=== PATIENT | female | born 1980 | race Caucasian/White ===

== ENCOUNTER 2021-08-07 15:33 | Observation (INO) ==
[2021-08-07] MEDS ORDERED: Ondansetron 4 MG/2 ML VIAL IVP PRN (16:03)
[2021-08-07] MEDS ORDERED: Naloxone 0.4 MG/ML INJ IVP PRN (16:03)
[2021-08-07] MEDS ORDERED: *HR* HYDROcodone/Acet 5/325 mg TABLET PO PRN (16:03)
[2021-08-07] MEDS ORDERED: *HR* HYDROmorphone (PF) 1 MG/ML SYRINGE IVP ONE (16:09)
[2021-08-07] MEDS: 0.9 % Sodium Chloride 1,000 ML IVC SCH (16:20)
[2021-08-07] MEDS: Gabapentin 300 MG CAPSULE PO SCH ×2 (16:20→20:09)
[2021-08-07 16:45] LABS: Basophils % 0.2 %; Eosinophils % 0.2 %; Hematocrit 40.3 % (35.3-44.9); Hemoglobin 13.7 g/dL (11.5-15.4); Immature Granulocytes % 0.3 % (0-4); Lymphocytes # 1.8 K/mcL (0.6-4.6); Lymphocytes % 31.3 %; Mean Corpuscular Hemoglobin 31.4 pg (28.0-33.3); Mean Corpuscular Volume 92.2 fL (83.0-100.0); Mean Platelet Volume 10.2 fL (9.4-12.4); Monocytes # 0.4 K/mcL (0.0-1.3); Monocytes % 6.7 %; Neutrophils # 3.6 K/mcL (1.6-8.9); Platelet Count 179 K/mcL (140-400); Red Blood Count 4.37 M/mcL (3.82-4.97); Red Cell Distribution Width 12.4 % (11.5-14.5); Segmented Neutrophils % 61.3 %; White Blood Count 5.9 K/mcL (4.3-11.1)
[2021-08-07 16:56] LABS: INR 1.1
[2021-08-07 16:59] LABS: Activated Partial Thrombo Time 31.1 Seconds (26.0-36.0)
[2021-08-07 17:13] LABS: BUN/Creatinine Ratio 18 (6-26); Blood Urea Nitrogen 13 mg/dL (6-20); Calcium 9.6 mg/dL (8.6-10.3); Carbon Dioxide 21 mEq/L (23-29); Chloride 106 mEq/L (98-107); Glucose 104 mg/dL (70-105); Osmolality,Calculated 286 (280-300); Potassium 3.6 mEq/L (3.5-5.1); Sodium 138 mEq/L (136-145); eGFR For African Americans > 60 (> 60); eGFR For Non-African Americans > 60 (> 60)
[2021-08-07] MEDS: *HR* OxyCODONE Immed Rel 5 MG TABLET PO PRN (18:19)
[2021-08-07] MEDS: Acetaminophen 325 MG TABLET PO SCH (18:20)
[2021-08-07 23:27] LABS: Magnesium 1.9 mg/dL (1.6-2.6)
[2021-08-08] MEDS: Acetaminophen 325 MG TABLET PO SCH ×4 (00:19→18:28)
[2021-08-08] MEDS: *HR* OxyCODONE Immed Rel 5 MG TABLET PO PRN ×2 (00:19→06:20)
[2021-08-08] MEDS: 0.9 % Sodium Chloride 1,000 ML IVC SCH (06:23)
[2021-08-08] MEDS: Gabapentin 300 MG CAPSULE PO SCH ×3 (09:34→21:54)
[2021-08-08] MEDS ORDERED: tiZANidine 4 MG TABLET PO ONE (10:24)
[2021-08-08] MEDS ORDERED: Gabapentin 300 MG CAPSULE PO ONE (10:24)
[2021-08-08] MEDS ORDERED: Acetaminophen IV 1,000 MG/100 ML BAG IVPB ONE ×2 (10:24→17:30)
[2021-08-08] MEDS ORDERED: Famotidine 20 MG/2 ML VIAL IVP ONE (10:24)
[2021-08-08] MEDS ORDERED: Lidocaine HCL 4 ML Topical Solution (Laryng-O-Jet Kit Sterile Pak) TP ONE (11:27)
[2021-08-08] MEDS ORDERED: *HR* Succinylcholine 200 MG/10 ML VIAL IVP ONE (11:27)
[2021-08-08] MEDS ORDERED: Ondansetron 4 MG/2 ML VIAL ONE (11:27)
[2021-08-08] MEDS ORDERED: *HR* FentaNYL (PF) 100 MCG/2 ML VIAL ONE (11:27)
[2021-08-08] MEDS ORDERED: *HR* Rocuronium Bromide 50 MG/5 ML VIAL ONE (11:27)
[2021-08-08] MEDS ORDERED: Lidocaine -MPF 2% 2 ML VIAL ONE (11:27)
[2021-08-08] MEDS ORDERED: *HR* Midazolam HCl 2 MG/2 ML VIAL ONE (11:27)
[2021-08-08] MEDS ORDERED: *HR* Propofol 200 MG/20 ML VIAL IVP ONE (11:28)
[2021-08-08] MEDS ORDERED: *HR* Remifentanil 1 MG VIAL IVP ONE ×2 (11:33→14:48)
[2021-08-08] MEDS ORDERED: Bupivacaine/EPI 1:200k 0.25% 50 ML VIAL ONE (11:46)
[2021-08-08] MEDS ORDERED: Vancomycin 1,000 MG VIAL ONE (11:47)
[2021-08-08] MEDS ORDERED: Ondansetron 4 MG/2 ML VIAL IVP PRN (12:27)
[2021-08-08] MEDS ORDERED: EPHEDrine 50 MG/ML VIAL ONE (13:27)
[2021-08-08] MEDS: *HR* HYDROmorphone PF 0.5 MG/0.5 ML SYRINGE IVP PRN ×2 (16:29→16:58)
[2021-08-08] MEDS ORDERED: *HR* Meperidine 25 MG/ML SYRINGE IVP ONE ×2 (16:41→17:11)
[2021-08-08] MEDS: tiZANidine 4 MG TABLET PO SCH ×2 (17:32→21:54)
[2021-08-08 21:55] VITALS: O2SAT 100
[2021-08-08 21:56] VITALS: BP 107/71; PULSE 102; TEMP 98.2
== END 2021-08-08 22:57 | disposition home or self-care (01) ==
LOC: 4WAOSI
PROVIDERS: ADMIT Student in an Organized Health Care Education/Training Program; ATTEND Student in an Organized Health Care Education/Training Program